=== PATIENT | male | born 1945 ===

== ENCOUNTER 2017-08-28 09:00 | Inpatient (IN) | payer OTHER ==
[~2017-08-28] VITALS: Ht 160 cm; Wt 86.2 kg
[2017-08-28] MEDS ORDERED: FORTAMET1000 MG PO (12:34)
[2017-08-28] MEDS ORDERED: LOSARTAN-HCTZ1 EAC1 PO (12:35)
[2017-08-28] MEDS ORDERED: LANTUS SOL100 UNIT/1 (12:35)
[2017-08-28] MEDS ORDERED: GLIPIZIDE10 MG PO (12:35)
[2017-08-28] MEDS ORDERED: METROPOLO PO (12:36)
[2017-08-28] MEDS ORDERED: ZOCOR20 MG PO (12:36)
[2017-09-05] MEDS ORDERED: DOCUSATE SODIU100 MG PO (09:34)
[2017-09-05] MEDS ORDERED: PERCOCET 5-3251 EACH PO (09:35)
[2017-09-05] MEDS ORDERED: CLONAZEPAM1 MG PO (09:35)
== END 2017-09-05 12:05 | disposition home or self-care (01) | DRG 454 ==
LOC: PED 09-04 05:00 → O/R 09-04 05:00 → SURH 09-04 11:00 → PED 09-04 17:38
PROVIDERS: Orthopaedic Surgery Orthopaedic Surgery of the Spine
PROC: 0RG2071 Fusion of 2 or more Cervical Vertebral Joints with Autologous Tissue Substitute, Posterior Approach, Posterior Column, Open Approach (ICD-10-PCS; 2017-09-04)
PROC: 0RT30ZZ Resection of Cervical Vertebral Disc, Open Approach (ICD-10-PCS; 2017-09-04)
PROC: 07DS3ZZ Extraction of Vertebral Bone Marrow, Percutaneous Approach (ICD-10-PCS; 2017-09-04)
PROC: 0RG20A0 Fusion of 2 or more Cervical Vertebral Joints with Interbody Fusion Device, Anterior Approach, Anterior Column, Open Approach (ICD-10-PCS; principal; 2017-09-04 16:45)
DX: M50.01 Cervical disc disorder with myelopathy, high cervical region (principal); M47.12 Other spondylosis with myelopathy, cervical region; I10 Essential (primary) hypertension; E03.8 Other specified hypothyroidism; E11.9 Type 2 diabetes mellitus without complications

== ENCOUNTER → 2017-09-07 | Emergency (ER) | payer OTHER ==
[~2017-09-07] VITALS: Ht 152.4 cm; Wt 104.3 kg
[~2017-09-07] MED LIST: CLONAZEPAM1 MG PO; DOCUSATE SODIU100 MG PO; FORTAMET1000 MG PO; GLIPIZIDE10 MG PO; LANTUS SOL100 UNIT/1; LOSARTAN-HCTZ1 EAC1 PO; METROPOLO PO; PERCOCET 5-3251 EACH PO; TOPROL XL50 M1; ZOCOR20 MG PO
== END | disposition home or self-care (01) ==
LOC: ER 07:49
DX: I11.0 Hypertensive heart disease with heart failure (principal); I50.9 Heart failure, unspecified